=== PATIENT | male | born 2000 | race Caucasian/White ===

== ENCOUNTER → 2018-08-16 | Outpatient (CLI) | payer OTHER | LOC: COL.RAD 08-15 10:00 | DX: S43.491A Other sprain of right shoulder joint, initial encounter (principal) | CPT/HCPCS: A9585; Q9967 ==

== ENCOUNTER 2019-05-09 20:25 | Emergency (ER) | payer BC ==
[~2019-05-09] VITALS: Ht 198.1 cm; Wt 140.9 kg
[2019-05-09 20:42] VITALS: BP 148/101; TEMP 98.4
[2019-05-09 22:09] LABS: BASO % 0.4 % (0.0-2.0); EOS # 0.3 (0.0-0.7); EOS % 3.3 % (0-4.0); GRAN # 5.4 (1.4-6.5); GRAN % 57.3 % (42.2-75.2); HEMATOCRIT 47.6 % (36.0-47.0); HEMOGLOBIN 16.9 g/dl (12.5-16.1); LYMPH # 2.9 (1.2-3.4); LYMPH % 30.9 % (20.0-51.0); MEAN CELL VOLUME 88 fl (80.0-95.0); MEAN CORPUSCULAR HEMOGLOBIN 31 pg (26.0-32.0); MEAN CORPUSCULAR HGB CONC 36 g/dl (33.0-37.0); MEAN PLATELET VOLUME 10.9 fl (7.4-10.4); MONO # 0.7 (0.1-0.6); MONO % 7.6 % (1.7-9.3); PLATELET COUNT 246 K/mm3 (130-400); RED BLOOD COUNT 5.41 M/mm3 (4.20-5.60); REDCELL DISTRIBUTION WIDTH-CV 11.7 % (11.5-14.5)
[2019-05-09 22:24] LABS: ALANINE AMINOTRANSFERASE 60 U/L (21-72); ALBUMIN 4.7 gm/dL (3.5-5.0); ALKALINE PHOSPHATASE 68 U/L (50-136); ANION GAP 11 mmol/L (7-16); AST,SGOT 41 U/L (15-37); BILIRUBIN,TOTAL 0.6 mg/dL (0.0-1.0); BLOOD UREA NITROGEN 16 mg/dL (9-20); CALCIUM 9.4 mg/dL (8.4-10.2); CARBON DIOXIDE 25 mmol/L (22-30); CHLORIDE 107 mmol/L (98-107); CREATININE, serum 0.82 (0.66-1.25); GLUCOSE 91 mg/dL (74-106); POTASSIUM 4.3 mmol/L (3.4-5.0); SODIUM 143 mmol/L (137-145); TOTAL PROTEIN 7.9 gm/dL (6.4-8.2)
[2019-05-09 22:36] LABS: TROPONIN-I < 0.012 ng/mL (0.000-0.035)
[2019-05-09 23:36] VITALS: PULSE 87
== END 2019-05-09 23:40 | disposition home or self-care (01) ==
LOC: COL.ER 20:25
PROVIDERS: Emergency Medicine
DX: R07.89 Other chest pain (principal); Z88.2 Allergy status to sulfonamides

== ENCOUNTER 2019-05-31 20:27 | Emergency (ER) | payer BC ==
[~2019-05-31] VITALS: Ht 198.1 cm; Wt 140.9 kg
[2019-05-31 20:57] LABS: COLLECTION METHOD CLEAN CATCH
[2019-05-31 21:20] LABS: MUCOUS Present /lpf; PH 6 (5-8); SQUAMOUS EPITHELIAL None Seen /hpf; URINE APPEARANCE Cloudy; URINE BACTERIA None Seen /hpf; URINE BILIRUBIN Negative (NEGATIVE); URINE BLOOD 3+ (NEGATIVE); URINE CALCIUM OXALATE CRYSTAL Present /hpf; URINE COLOR Amber; URINE GLUCOSE Negative (NEGATIVE); URINE KETONE Negative (NEGATIVE); URINE LEUKOCYTE ESTERASE Negative (NEGATIVE); URINE NITRATE Negative (NEGATIVE); URINE PROTEIN(semi-quant) 2+ (NEGATIVE); URINE RBC >50 /hpf; URINE UROBILINOGEN Negative (NEGATIVE)
[2019-05-31 21:42] LABS: BASO # 0.1 (0.0-0.2); BASO % 0.6 % (0.0-2.0); EOS # 0.1 (0.0-0.7); GRAN # 6.8 (1.4-6.5); GRAN % 70.5 % (42.2-75.2); HEMATOCRIT 45.1 % (36.0-47.0); HEMOGLOBIN 15.9 g/dl (12.5-16.1); LYMPH # 1.9 (1.2-3.4); LYMPH % 19.7 % (20.0-51.0); MEAN CELL VOLUME 87 fl (80.0-95.0); MEAN CORPUSCULAR HEMOGLOBIN 31 pg (26.0-32.0); MEAN CORPUSCULAR HGB CONC 35 g/dl (33.0-37.0); MEAN PLATELET VOLUME 11.4 fl (7.4-10.4); MONO # 0.8 (0.1-0.6); PLATELET COUNT 238 K/mm3 (130-400); RED BLOOD COUNT 5.17 M/mm3 (4.20-5.60); REDCELL DISTRIBUTION WIDTH-CV 11.8 % (11.5-14.5)
[2019-05-31 21:47] LABS: BILIRUBIN,TOTAL 0.8 mg/dL (0.0-1.0); C-REACTIVE PROTEIN 0.6 mg/dL (0.0-0.9); CALCIUM 9.7 mg/dL (8.4-10.2); CREATININE, serum 0.87 (0.66-1.25); POTASSIUM 3.9 mmol/L (3.4-5.0); TOTAL PROTEIN 8.2 gm/dL (6.4-8.2)
[2019-05-31 22:30] VITALS: TEMP 98
[2019-06-01 00:34] VITALS: BP 148/83; PULSE 72
== END 2019-06-01 00:35 | disposition home or self-care (01) ==
LOC: COL.ER 20:27
PROVIDERS: Emergency Medicine; Nurse Practitioner
DX: N20.1 Calculus of ureter (principal); Z88.2 Allergy status to sulfonamides
CPT/HCPCS: Q9967

== ENCOUNTER 2019-06-10 05:19 | Day surgery (SDC) | payer BC ==
[2019-06-10] VITALS (9 sets, daily range): BP systolic 122–151; BP diastolic 70–93; PULSE 48–83; TEMP 98.4–98.8
[~2019-06-10] VITALS: Ht 198.1 cm; Wt 139.8 kg
[2019-06-10] MEDS ORDERED: PERCOCET 325 MG1 TA2 PO (06:15)
[2019-06-10] MEDS ORDERED: AZO URINARY PAI95 MG PO (06:17)
--- NOTE | 2019-06-10 06:18 | NUR ---
TO RM AT 0549- CALL LIGHT IN REACH NO ONE WITH PATIENT AT THIS TIME.
--- NOTE | 2019-06-10 09:30 | NUR ---
TO RM 8 PER CART FROM PACU. DROWSY AND ORIENTED X 3. C/O PAIN 11/24. DENIES NAUSEATED AT THIS TIME.
--- NOTE | 2019-06-10 09:45 | NUR ---
CONTINUES TO HAVE IRREGULAR HEART TONES MOTHER AT BEDSIDE. C/O NAUSEA
--- NOTE | 2019-06-10 09:59 | NUR ---
RECEIVED ZOFRAN 4MG IV
--- NOTE | 2019-06-10 10:00 | NUR ---
CONTINUES TO SLEEP QUIETLY
--- NOTE | 2019-06-10 10:15 | NUR ---
PATIENT STATED THE NAUSEA IS BETTER AND PAIN THE SAME. PATIENT HAS WATER AND CRACKERS AT BEDSIDE.
--- NOTE | 2019-06-10 10:37 | NUR ---
TAKING SIPS OF WATER
--- NOTE | 2019-06-10 10:45 | NUR ---
RESTING QUIETLY. DENIES PAIN OR DISCOMFORT DENIES NAUSEA
--- NOTE | 2019-06-10 11:25 | NUR ---
AMBULATED TO BATHROOM, UPON RETURNING TO BECAME NAUSEATED. ENCOURAGED PATIENT TO LAY BACK DOWN AND REST.
--- NOTE | 2019-06-10 11:48 | NUR ---
PATIENT RESTING FORMERLY [facility], 1928–1983
--- NOTE | 2019-06-10 12:10 | NUR ---
PATIENTS MOTHER CAME OUT AND SAID PATIENT READY TO GO HOME. PATIENT SITTING UP. DISCONTINUED IV AND INT- CATHETER INTACT UPON SITTING UP PATIENT BECAME PALE AND SLIGHTLY NAUSEATED. LAYED BACK DOWN. RECEIVED DISCHARGE INSTRUCTIONS AND MOTHER SIGNED FOR PATIENT.
--- NOTE | 2019-06-10 12:25 | NUR ---
PATIENT DRESSED SELF AND STATED HE WAS READY TO GO HOME.
--- NOTE | 2019-06-10 12:34 | NUR ---
DISCHARGED PER WC BY NURSING STAFF TO PRIVATE CAR IN CARE OF MOTHER- NILDA.
== END 2019-06-10 12:41 | disposition home or self-care (01) ==
LOC: SDCO 05:19
DX: N20.2 Calculus of kidney with calculus of ureter (principal); F17.210 Nicotine dependence, cigarettes, uncomplicated; Z88.2 Allergy status to sulfonamides
CPT/HCPCS: C1769; C2617; J0690; J1100; J1170; J2405; J2704; J3010; Q9967

== ENCOUNTER 2021-11-24 11:18 | Emergency (ER) | payer OTHER, BC ==
[~2021-11-24] VITALS: Ht 195.6 cm; Wt 115.9 kg
[~2021-11-24 11:18] MED LIST: AZO URINARY PAI95 MG PO; PERCOCET 325 MG1 TA2 PO
[2021-11-24 11:52] VITALS: TEMP 98.1
[2021-11-24 12:38] VITALS: BP 143/85; PULSE 63
== END 2021-11-24 12:33 | disposition home or self-care (01) ==
LOC: COL.ER 11:18
DX: S46.911A Strain of unspecified muscle, fascia and tendon at shoulder and upper arm level, right arm, initial encounter (principal); R51.9 Headache, unspecified; V48.5XXA Car driver injured in noncollision transport accident in traffic accident, initial encounter